=== PATIENT | female | born 1995 | race African-American/Black ===

== ENCOUNTER 2016-12-16 09:15 | Emergency (ER) | payer MEDICAID ==
[~2016-12-16] VITALS: Ht 160 cm; Wt 67.0 kg
[~2016-12-16 09:15] MED LIST: CLEO300C2 PO
[2016-12-16 09:17] VITALS: BP 132/79; PULSE 98; RESP 15; TEMP 98.2; O2SAT 98
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
[2016-12-16] MEDS ORDERED: IBUP800T23 PO (12:00)
[2016-12-16 12:20] VITALS: BP 128/78
== END 2016-12-16 12:21 | disposition home or self-care (01) ==
LOC: NEPD 09:15
DX: S00.83XA Contusion of other part of head, initial encounter (principal); S02.2XXA Fracture of nasal bones, initial encounter for closed fracture; Y04.0XXA Assault by unarmed brawl or fight, initial encounter
CPT/HCPCS: 70450; 70486; 84703; 99285